=== PATIENT | female | born 1995 | race Caucasian/White ===

== ENCOUNTER → 2018-08-12 | Outpatient (CLI) | payer OTHER ==
[~2018-08-12] MED LIST: LIDOCAINE 1% 300 MG/30 ML SDV ONE
[2018-08-12 09:41] LABS: INR 0.93 (0.83-1.16); PROTIME(PATIENT) 12.7 SEC (12.0-15.0)
== END ==
LOC: FIMAGING 08:48
PROC: 009U3ZX Drainage of Spinal Canal, Percutaneous Approach, Diagnostic (ICD-10-PCS; principal; 2018-08-12)
DX: H47.11 Papilledema associated with increased intracranial pressure (principal)